=== PATIENT | male | born 1980 | race Caucasian/White ===

== ENCOUNTER 2017-01-06 19:44 | Emergency (ER) | payer OTHER ==
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
[2017-01-06 20:20] VITALS: O2SAT 97
[2017-01-06 21:12] VITALS: BP 135/88; PULSE 83; RESP 16; TEMP 98.4
== END 2017-01-06 21:11 | disposition home or self-care (01) ==
DX: S80.211A Abrasion, right knee, initial encounter (principal); S80.212A Abrasion, left knee, initial encounter; S60.511A Abrasion of right hand, initial encounter; S60.512A Abrasion of left hand, initial encounter; V13.4XXA Pedal cycle driver injured in collision with car, pick-up truck or van in traffic accident, initial encounter; Y92.410 Unspecified street and highway as the place of occurrence of the external cause; Y99.8 Other external cause status; Y93.55 Activity, bike riding